=== PATIENT | female | born 2005 | race Two or more races ===

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

== ENCOUNTER 2025-07-21 01:29 | Outpatient (CLI) | payer OTHER | END 2025-07-21 01:42 | disposition home or self-care (01) | LOC: NST 01:29 | PROVIDERS: ATTEND Obstetrics & Gynecology | DX: Z34.83 Encounter for supervision of other normal pregnancy, third trimester (principal) ==

== ENCOUNTER → 2025-07-21 | Outpatient (CLI) | payer OTHER ==
[~2025-07-21] MED LIST: AMOX1TAB5 PO; PEPCID AC20 MG PO
[2025-07-21 17:42] VITALS: BP 113/72
[2025-07-21 19:50] VITALS: BP 113/72
== END | disposition home or self-care (01) ==
LOC: OBS/DEL 20:12
PROVIDERS: ATTEND Obstetrics & Gynecology Gynecology
DX: O26.893 Other specified pregnancy related conditions, third trimester (principal); Z3A.37 37 weeks gestation of pregnancy

== ENCOUNTER 2025-07-27 15:51 | Inpatient (IN) | payer OTHER ==
[~2025-07-27] VITALS: Ht 165.1 cm; Wt 3.2 kg
[2025-07-30 11:20] VITALS: BP 132/81
[2025-07-30] MEDS ORDERED: AMPICILLIN SODIUM 2,000 MG VIAL IV ONE (12:00)
[2025-07-30] MEDS ORDERED: OXYTOCIN 20 UNITS/500ML RL PIGGYBAG IV ONE (12:23)
[2025-07-30] MEDS ORDERED: OXYTOCIN 500 ML IV ONE (12:30)
[2025-07-30 12:42] LABS: BASO % 0.4 % (0.1-1.2); EOS # 0.10 (0.04-0.54); EOS % 1.3 % (0.7-7.0); LYMPH # 1.72 (1.18-3.74); LYMPH % 21.7 % (19.3-53.1); MEAN PLATELET VOLUME 10.30 fl (9.4-12.4); MONO # 0.86 (0.24-0.82); MONO % 10.9 % (4.7-12.5); NEUT # 5.11 (1.56-6.13); NEUT % 64.6 % (34.0-71.1); RED CELL DISTRIBUTION WIDTH 12.2 % (11.6-14.4)
[2025-07-30 12:48] LABS: ALT/SGPT 61.0 U/L (12-78); AST/SGOT 75.0 U/L (15-37); BILIRUBIN TOTAL 0.62 mg/dL (0.3-1.2); BUN CREA RATIO 12.0 (7.0-25.0); CREATININE SERUM 0.58 mg/dL (0.55-1.02); GFR 132.54; GLOBULINA 3.6 G/DL (2.4-3.5); GLUCOSE FASTING 72.0 mg/dL (65-100); OSMOLALITY SERUM 280.0 MOSM/KG (275-295)
[2025-07-30] MEDS ORDERED: FAMOTIDINE/PF 20 MG/2 ML VIAL IV ONE (13:00)
[2025-07-30 13:07] LABS: INR < 0.93
[2025-07-30] MEDS ORDERED: FAMOTIDINE/PF 20 MG/2 ML VIAL IV NR (13:30)
[2025-07-30] MEDS ORDERED: CEFAZOLIN SODIUM 1,000 MG VIAL ONE (14:14)
[2025-07-30] MEDS ORDERED: ERYTHROMYCIN BASE OPHT 1GM EACH TUBE OP ONE (14:20)
[2025-07-30] MEDS ORDERED: OXYTOCIN 10 UNITS/ML VIAL ONE ×2 (14:20→17:52)
[2025-07-30] MEDS ORDERED: MORPHINE SULFATE 4 MG/ML CARTRIDGE IV PRN (15:30)
[2025-07-30] MEDS ORDERED: RINGERS SOLUTION,LACTATED 1,000 ML IV SCH (15:30)
[2025-07-30] MEDS ORDERED: OXYTOCIN 1,000 ML IV SCH (15:30)
[2025-07-30] MEDS ORDERED: AMPICILLIN SODIUM 1,000 MG VIAL IV SCH (16:00)
[2025-07-30] MEDS ORDERED: KETOROLAC TROMETHAMINE 30 MG VIAL ONE (16:02)
[2025-07-30] MEDS ORDERED: AMPICILLIN SODIUM 1,000 MG VIAL ONE (16:26)
[2025-07-30] MEDS ORDERED: GABAPENTIN 300 MG CAPSULE PO SCH (17:00)
[2025-07-30] MEDS ORDERED: SIMETHICONE 125 MG CAPSULE PO SCH (17:00)
[2025-07-30] MEDS ORDERED: KETOROLAC TROMETHAMINE 30 MG VIAL IV SCH (18:00)
[2025-07-30] MEDS ORDERED: ONDANSETRON HCL 2 MG/ML VIAL IV SCH (18:00)
[2025-07-30] MEDS ORDERED: ACETAMINOPHEN 500 MG GEL..CAP PO SCH (18:00)
[2025-07-30 18:50] VITALS: BP 135/80
[2025-07-31] VITALS: BP 125/79
[2025-07-31 06:50] LABS: BASO % 0.2 % (0.1-1.2); EOS # 0.04 (0.04-0.54); EOS % 0.4 % (0.7-7.0); LYMPH # 0.90 (1.18-3.74); LYMPH % 9.2 % (19.3-53.1); MEAN PLATELET VOLUME 10.20 fl (9.4-12.4); MONO # 0.94 (0.24-0.82); MONO % 9.6 % (4.7-12.5); NEUT # 7.80 (1.56-6.13); NEUT % 80.1 % (34.0-71.1); RED CELL DISTRIBUTION WIDTH 12.1 % (11.6-14.4)
[2025-07-31] MEDS ORDERED: OxyCODONE HCL 5 MG TABLET (ROXICODONE) PO PRN (08:00)
[2025-07-31] MEDS ORDERED: KETOROLAC TROMETHAMINE 10 MG TABLET PO SCH (08:00)
[2025-07-31 08:42] VITALS: BP 107/70
[2025-07-31] MEDS ORDERED: DOCUSATE SODIUM 100MG CAP PO SCH (09:00)
[2025-07-31 13:08] VITALS: BP 104/66
[2025-07-31 16:35] VITALS: BP 118/79
[2025-08-01 00:40] VITALS: BP 122/80
[2025-08-01 02:25] LABS: BASO % 0.2 % (0.1-1.2); EOS # 0.06 (0.04-0.54); EOS % 0.5 % (0.7-7.0); LYMPH # 1.20 (1.18-3.74); LYMPH % 10.8 % (19.3-53.1); MEAN PLATELET VOLUME 9.60 fl (9.4-12.4); MONO # 0.98 (0.24-0.82); MONO % 8.8 % (4.7-12.5); NEUT # 8.80 (1.56-6.13); NEUT % 79.1 % (34.0-71.1); RED CELL DISTRIBUTION WIDTH 13.0 % (11.6-14.4)
[2025-08-01 09:45] VITALS: BP 134/72
[2025-08-01] MEDS ORDERED: IRON/V.C/V.B12/FOLIC A/VIT. E 1 CAPL CAPLET PO SCH (12:00)
[2025-08-01 16:00] VITALS: BP 118/75
[2025-08-02] VITALS: BP 127/86
[2025-08-02 04:00] VITALS: BP 124/75
[2025-08-02 09:43] VITALS: BP 123/79
== END 2025-08-02 11:40 | disposition home or self-care (01) | DRG 788 ==
LOC: LDR 07-30 11:14 → OB/GYN 07-30 11:14 → O/R 07-30 15:03 → OB/GYN 07-30 15:44 → LDR 08-06 13:00
PROVIDERS: Obstetrics & Gynecology; ADMIT Obstetrics & Gynecology Maternal & Fetal Medicine; ATTEND Obstetrics & Gynecology Maternal & Fetal Medicine
PROC: 4A1HXCZ Monitoring of Products of Conception, Cardiac Rate, External Approach (ICD-10-PCS; 2025-07-30)
PROC: 10D00Z1 Extraction of Products of Conception, Low, Open Approach (ICD-10-PCS; principal; 2025-07-30 14:15)
DX: O36.8130 Decreased fetal movements, third trimester, not applicable or unspecified (principal); Z3A.39 39 weeks gestation of pregnancy; Z37.0 Single live birth